=== PATIENT | male | born 1985 | race Caucasian/White ===

== ENCOUNTER 2024-03-25 10:16 | Emergency (ER) | payer OTHER ==
[2024-03-25] MEDS: Sodium Chloride 0.9% 10 ML Syringe FLUSH PRN (10:47)
[2024-03-25] MEDS: HYDROmorphone 1 MG/ML Syringe IVPUSH ONE ×2 (10:47→11:18)
[2024-03-25] MEDS: ceFAZolin 2 GM in Sodium Chloride 0.9% 50 ML IV ONE (10:48)
[2024-03-25] MEDS: Lidocaine 1% 10 ML MDV INJECT ONE (11:11)
[2024-03-25] MEDS: HYDROmorphone 0.5 MG/0.5 ML Syringe IVPUSH ONE (12:06)
== END 2024-03-25 13:10 | disposition home or self-care (01) ==
LOC: JD.ED 10:16
DX: S61.212A Laceration without foreign body of right middle finger without damage to nail, initial encounter (principal); F17.210 Nicotine dependence, cigarettes, uncomplicated; W23.0XXA Caught, crushed, jammed, or pinched between moving objects, initial encounter
CPT/HCPCS: 12002; 26700; 73120; 73130; 96365; 96375; 96376; 99283; J0690; J1171; J3490; 26775; 99284